=== PATIENT | female | born 1995 ===

== ENCOUNTER 2021-02-21 00:27 | Emergency (ER) | payer OTHER ==
[~2021-02-21] VITALS: Ht 165.1 cm; Wt 59.1 kg
[2021-02-21] MEDS ORDERED: VYVANSE40 MG PO (00:33)
[2021-02-21 02:30] VITALS: BP 117/55; PULSE 75
== END 2021-02-21 02:51 | disposition home or self-care (01) ==
LOC: COL.ER 00:27
DX: F12.929 Cannabis use, unspecified with intoxication, unspecified (principal); F90.9 Attention-deficit hyperactivity disorder, unspecified type; Z79.899 Other long term (current) drug therapy